=== PATIENT | male | born 1975 | race Caucasian/White ===

== ENCOUNTER → 2016-06-03 | Outpatient (CLI) | payer BC | LOC: RAD 17:09 | PROVIDERS: ATTEND Internal Medicine Gastroenterology | DX: K50.018 Crohn's disease of small intestine with other complication (principal) | CPT/HCPCS: 71020 ==

== ENCOUNTER → 2017-10-23 | Outpatient (CLI) | payer BC ==
[2017-10-23 15:23] LABS: ABSOLUTE BASOPHILS # (AUTO) 0.1 10^3/uL (0.0-0.2); ABSOLUTE EOSINOPHILS # (AUTO) 0.1 10^3/uL (0.0-0.6); ABSOLUTE LYMPHOCYTES (AUTO) 3.5 10^3/uL (0.5-4.7); ABSOLUTE MONOCYTES (AUTO) 0.8 10^3/uL (0.1-1.4); ABSOLUTE NEUT (AUTO) 3.4 10^3/uL (1.7-8.2); EOSINOPHILS % (AUTO) 1.6 % (0-6); HEMATOCRIT 42.8 % (37.9-51.0); HEMOGLOBIN 14.9 g/dL (13.5-17.0); LYMPHOCYTES % (AUTO) 44.4 % (13-45); MEAN CORPUSCULAR HEMOGLOBIN 32.1 pg (27.0-33.4); MEAN CORPUSCULAR HGB CONC 34.7 g/dL (32.0-36.0); MEAN CORPUSCULAR VOLUME 92 fl (80-97); MONOCYTES % (AUTO) 10.2 % (3-13); PLATELET COUNT 225 10^3/uL (150-450); RED BLOOD COUNT 4.64 10^6/uL (4.35-5.55); SEGMENTED NEUTROPHILS % (AUTO) 42.8 % (42-78); TOTAL CELLS COUNTED % (AUTO) 100 %; WHITE BLOOD COUNT 7.9 10^3/uL (4.0-10.5)
[2017-10-23 16:14] LABS: ALANINE AMINOTRANSFERASE 70 U/L (21-72); ALBUMIN 3.9 g/dL (3.5-5.0); ALKALINE PHOSPHATASE 64 U/L (38-126); ANION GAP 11 (5-19); ASPARTATE AMINO TRANSFERASE 44 U/L (17-59); BILIRUBIN,DIRECT 0.3 mg/dL (0.0-0.4); BILIRUBIN,TOTAL 0.5 mg/dL (0.2-1.3); BLOOD UREA NITROGEN 9 mg/dL (7-20); CALCIUM 9.2 mg/dL (8.4-10.2); CARBON DIOXIDE 26 mmol/L (22-30); CHLORIDE 104 mmol/L (98-107); GLUCOSE 89 mg/dL (75-110); POTASSIUM 3.9 mmol/L (3.6-5.0); SODIUM 141.4 mmol/L (137-145); TOTAL PROTEIN 6.8 g/dL (6.3-8.2)
== END ==
LOC: LAB 15:01
PROVIDERS: ATTEND Physician Assistant Surgical
DX: K50.90 Crohn's disease, unspecified, without complications (principal); E56.9 Vitamin deficiency, unspecified; Z79.899 Other long term (current) drug therapy
CPT/HCPCS: 36415; 80053; 82306; 82607; 85025

== ENCOUNTER → 2019-05-15 | Outpatient (CLI) | payer BC ==
[2019-05-15 12:04] LABS: ALBUMIN 3.7 g/dL (3.5-5.0); ALKALINE PHOSPHATASE 61 U/L (38-126); ASPARTATE AMINO TRANSFERASE 34 U/L (17-59); BILIRUBIN,DIRECT 0.3 mg/dL (0.0-0.4); BILIRUBIN,TOTAL 0.6 mg/dL (0.2-1.3); C-REACTIVE PROTEIN 6.3 mg/L (<10.0); TOTAL PROTEIN 7.1 g/dL (6.3-8.2)
== END ==
LOC: OD 09:27
PROVIDERS: ATTEND Internal Medicine Gastroenterology
DX: K50.018 Crohn's disease of small intestine with other complication (principal)
CPT/HCPCS: 36415; 80076; 86140

== ENCOUNTER 2019-07-07 07:18 | Day surgery (SDC) | payer BC ==
[~2019-07-07 07:18] MED LIST: ACETAMINOPHEN 325 MG TABLET PO PRN; CEFAZOLIN 1 GM/D5W RTU 1 GM/50 ML RTUPB IV PRN; FENTANYL CITRATE INJ/PF 100 MCG/2 ML AMPUL ONE; MIDAZOLAM 2 MG/2 ML INJ ONE; PROPOFOL INJ 200 MG/20 ML VIAL IV ONE
[2019-07-07] MEDS ORDERED: CEFAZOLIN 1 GM/D5W RTU 1 GM/50 ML RTUPB IV ONE (07:23)
[2019-07-07] MEDS ORDERED: LIDOCAINE 1%/EPINEPHRINE INJ 20 ML VIAL ONE ×2 (07:29→08:46)
[2019-07-07 07:56] LABS: HEMATOCRIT 45.1 % (37.9-51.0); HEMOGLOBIN 15.3 g/dL (13.5-17.0); MEAN CORPUSCULAR HEMOGLOBIN 32.4 pg (27.0-33.4); MEAN CORPUSCULAR HGB CONC 33.9 g/dL (32.0-36.0); MEAN CORPUSCULAR VOLUME 96 fl (80-97); PLATELET COUNT 269 10^3/uL (150-450); RED BLOOD COUNT 4.72 10^6/uL (4.35-5.55); WHITE BLOOD COUNT 6.4 10^3/uL (4.0-10.5)
--- NOTE | 2019-07-07 08:13 | RADIOLOGY REPORT (SQ) ---
EXAM DESCRIPTION: CHEST SINGLE VIEW COMPLETED DATE/TIME: 07/07/2019 6:39 am REASON FOR STUDY: preop COMPARISON: 06/03/2016 EXAM PARAMETERS: NUMBER OF VIEWS: One view. TECHNIQUE: Single frontal radiographic view of the chest acquired. RADIATION DOSE: NA LIMITATIONS: None. FINDINGS: LUNGS AND PLEURA: No opacities, masses or pneumothorax. No pleural effusion. MEDIASTINUM AND HILAR STRUCTURES: No masses. Contour normal. HEART AND VASCULAR STRUCTURES: Heart normal in size. Normal vasculature. BONES: No acute findings. HARDWARE: None in the chest. OTHER: No other significant finding. IMPRESSION: NO ACUTE RADIOGRAPHIC FINDING IN THE CHEST. TECHNICAL DOCUMENTATION: JOB ID: [id number] 2010 [employer]- All Rights Reserved Reading location - IP/workstation name: [email or web address]
[2019-07-07] MEDS ORDERED: KETAMINE HCL INJ 500 MG/10 ML VIAL ONE (08:47)
[2019-07-07] MEDS ORDERED: ONDANSETRON HCL INJ/PF 4 MG/2 ML SDV IV PRN (09:25)
[2019-07-07] MEDS ORDERED: MORPHINE SULFATE 10 MG/ML INJ IV PRN (09:25)
[2019-07-07] MEDS ORDERED: DIPHENHYDRAMINE HCL 50 MG/ML VIAL IV PRN (09:25)
[2019-07-07] MEDS ORDERED: MEPERIDINE HCL/PF INJ 25 MG/1 ML DISP.SYRIN IV PRN (09:25)
[2019-07-07] MEDS ORDERED: FENTANYL CITRATE INJ/PF 100 MCG/2 ML AMPUL IV PRN ×3 (09:25)
[2019-07-07] MEDS ORDERED: OXYCODONE-ACETAMINOPHEN 5-325 MG TABLET PO PRN (10:46)
--- NOTE | 2019-07-07 10:46 | Discharge Summary ---
Discharge Summary (SDC) - Discharge Final Diagnosis: Port placement for Crohn's Date of Surgery: 07/07/19 Discharge Date: 07/07/19 Condition: Good Treatment or Instructions: WOUND CARE: 1) You may shower in 48 hours. Leave steri strips (paper bandaids) intact until follow up appointment. Do not scrub area. Pat dry and cover if needed with gauze and tape. PAIN MANAGEMENT: 1) You may take Toradol 10mg one pill by mouth every six hours as needed for pain. FOLLOW UP: 1) You may follow up at [facility] in 7 days. Call clinic sooner with questions/concerns. Prescriptions: Ketorolac Tromethamine [Toradol 10 mg Tablet] 10 mg PO Q6HP PRN #20 tablet PRN Reason: Discharge Activity: Activity As Tolerated Report the Following to Your Physician Immediately: Shortness of Breath, Increase in Pain, Yellow Skin, Fever over 101 Degrees, Unusual Bleeding, Redness, Swelling, Warmth, Increased Soreness, Drainage-Foul Smelling
--- NOTE | 2019-07-07 10:48 | Operative Report ---
Operative Report DATE OF SURGERY: 07/07/19 PREOPERATIVE DIAGNOSIS: 1. Crohn's disease. 2. Morbid obesity POSTOPERATIVE DIAGNOSIS: same OPERATION: 1. Placement of right subclavian Gbnsjp-[id number] cath. 2. Ultrasound directed insertion of catheter into the right internal jugular vein. 3. Interpretation of intraoperative fluoroscopy SURGEON: RICARDO TAYLOR ANESTHESIA: LMAC TISSUE REMOVED OR ALTERED: None COMPLICATIONS: None ESTIMATED BLOOD LOSS: Scant INTRAOPERATIVE FINDINGS: See below PROCEDURE: Patient was taken with the preop holding to the main operating room where LMAC anesthesia was induced. Patient's arms were tucked to the side, and chest wall taped caudad. Both sides of the neck and chest were prepped and draped in a sterile fashion. Surgical plan and surgical timeout were conducted. Using ultrasound real-time as a guide, a small kim was made in the right neck a fter anesthetizing the skin with 1% plain lidocaine. Micro needle and wire were threaded into the right internal jugular vein. A suitable site for placement of the port was chosen in the right subclavian position. The skin was anesthetized with 1% plain lidocaine. A 3 cm incision made with a knife, subcutaneous pocket developed to accommodate a single-chamber port. The catheter was then trimmed to the appropriate length, tunneled between the 2 incisions, attached to the port with the plastic ring. The port was tucked into the subclavian pocket. Under fluoroscopic guidance, real-time, the micro needle was switched over to a 0.030 guidewire. An 8 [place] dilator and sheath was threaded over the guidewire, guidewire and dilator removed, catheter free in threaded into the strip away sheath, stripped away sheath removed leaving the catheter in good position. The tip of the catheter was in the superior vena cava-right atrial junction. There was no evidence of ectopy. There was no kinking of the catheter. Hemostasis was excellent. Wounds closed with 3-0 Vicryl, benzoin, Steri-Strips. Patient tolerated procedure well, taken to recovery room in stable condition.
--- NOTE | 2019-07-07 11:12 | RADIOLOGY REPORT (SQ) ---
EXAM DESCRIPTION: FLUORO/CV PLACEMENT COMPLETED DATE/TIME: 07/07/2019 10:24 am REASON FOR STUDY: PORTACATH PLACEMENT RT SIDE ASSISTED WITH FLUOROSCOPY IN SURGERY K50.113 CROHN'S DISEASE OF LARGE INTESTINE WITH FISTULA COMPARISON: 07/07/2019 FLUOROSCOPY TIME: 0.2 minutes 3 images saved to PACS. TECHNIQUE: Intra-operative images acquired during surgical procedure to evaluate progress. NUMBER OF IMAGES: 3 LIMITATIONS: None. FINDINGS: Limited fluoroscopic images demonstrate evidence of right internal jugular port placement. Please see operative report for detailed description. IMPRESSION: IMAGE(S) OBTAINED DURING PROCEDURE. COMMENT: Quality ID [id number]: Final reports for procedures using fluoroscopy that document radiation exp osure indices, or exposure time and number of fluorographic images (if radiation exposure indices are not available) Please consult full operative report of the attending physician for description of the procedure. TECHNICAL DOCUMENTATION: JOB ID: [id number] 2010 [employer]- All Rights Reserved Reading location - IP/workstation name: [email or web address]
[2019-07-07 12:11] VITALS: BP 116/71
== END 2019-07-07 11:45 | disposition home or self-care (01) ==
LOC: OROUT 07:18
PROVIDERS: ATTEND Surgery
DX: K50.113 Crohn's disease of large intestine with fistula (principal); E66.9 Obesity, unspecified; Z86.010 Personal history of colon polyps; Z87.891 Personal history of nicotine dependence; Z79.899 Other long term (current) drug therapy; Z68.43 Body mass index [BMI] 50.0-59.9, adult
CPT/HCPCS: 36561; 36415; 85027; 71045; 77001; 00532; C1752; C1788; J2250; J0690; J3010; J3490 ×2; J2704; J1642; 532